=== PATIENT | male | born 1940 | race Caucasian/White ===

== ENCOUNTER 2018-01-27 20:00 | Emergency (ER) | payer OTHER ==
[~2018-01-27] VITALS: Ht 175.3 cm; Wt 94.9 kg
[~2018-01-27 20:00] MED LIST: ADVAIR 250/501 DISK IH; AMLODIPINE BESY10 MG PO; AMLODIPINE BESYL5 MG PO; Advair HFA 115/21 IH; Apresoline PO; CELEXA10 MG PO; CIPRO500 MG PO; COUMADIN4 MG PO; Colace PO; Coumadin,Jantoven PO; DULCOLAX10 MG PR; DURAGESIC25 MCG TD; DuoNeb IH; ENDOCET 5-3251 EACH PO; FENTANYL1 EAC5 TD; FERATAB300 MG PO; FLAGYL500 MG PO; FLEET ENEMA EX230 ML PR; Feosol PO; GAS RELIEF80 M1 PO; HEPARIN SO5000 UNITS SC; HUMULIN R100 UNITS/ SC; HYDROCODON-ACE1 EAC7 PO; LANTUS 10100 UNITS/ SC; LANTUS 3 M100 UNITS1 SC; LEVOFLOXACIN750 MG PO; LIQUACEL PO; LISINOPRIL20 MG PO; LISINOPRIL40 MG PO; METOPROLOL SUC100 MG PO; METOPROLOL SUCC50 MG PO; METOPROLOL TART25 MG PO; METOPROLOL TART50 MG PO; MOTRIN400 MG PO; MULTIVITAMIN1 EAC2 PO; Miralax, Glycolax PO; NIFEDIPINE ER30 MG PO; NOVOLOG 10100 UNITS/ SC; NOVOLOG PE100 UNITS/ SC; OMEPRAZOLE20 M2 PO; OXYCODONE HCL5 M1; OXYCODONE HCL5 M1 PO; OXYCODONE HCL5 MG PO; PANTOPRAZOLE SO40 MG PO; PHILLIPS'400 MG/5 M PO; PRILOSEC20 MG PO; PROMETHAZINE HC25 M1 PO; Percocet 5/325,Endoc PO; Procardia XL,Adalat PO; SIMVASTATIN20 MG PO; SIMVASTATIN40 MG PO; TYLENOL REGULA325 MG PO; VIT E PO; VITAMIN C250 MG PO; Vasotec IV; [UNRECOGNIZED DRUG - OTHER] PO
[2018-01-27 20:36] LABS: HEMATOCRIT 35.3 % (38.0-50.0); HEMOGLOBIN 12.1 G/DL (12.5-16.6); MCH 30.3 PG (29.0-34.0); MCHC 34.3 G/DL (30.0-36.0); MCV 88.5 FL (86-99); PLATELET COUNT 180 K/uL (156-360); RBC DIS.WIDTH-CV 13.2 % (11.8-14.6); RBC DIS.WIDTH-SD 42.5 % (39-53); RED BLOOD COUNT 3.99 M/uL (4.00-5.50); WHITE BLOOD COUNT 7.8 K/uL (4.1-10.2)
[2018-01-27 20:45] LABS: CHLORIDE 110 mEq/L (99-109); POTASSIUM 4.9 mEq/L (3.7-5.4); SODIUM 137 mEq/L (136-147)
[2018-01-27 20:47] LABS: GLUCOSE 305 mg/dL (70-99)
[2018-01-27 20:51] LABS: CREATININE 2.5 mg/dL (0.6-1.3); GFR ESTIMATE (CALCULATED) 27 mL/min/ (58.99-99999)
[2018-01-27 20:52] LABS: UREA NITROGEN (BUN) 49 mg/dL (9-23)
[2018-01-27 20:57] LABS: TROP-I INTERPRETATION NEGATIVE; TROPONIN-I < 0.01 ng/mL (0.0-0.30)
[2018-01-28 01:42] VITALS: BP 202/94
== END 2018-01-28 02:00 | disposition home or self-care (01) ==
LOC: EME 20:00
DX: R42 Dizziness and giddiness (principal); I10 Essential (primary) hypertension; E11.9 Type 2 diabetes mellitus without complications; J44.9 Chronic obstructive pulmonary disease, unspecified; F41.9 Anxiety disorder, unspecified; F32.9 Major depressive disorder, single episode, unspecified; Z79.4 Long term (current) use of insulin; Z87.891 Personal history of nicotine dependence; Z85.828 Personal history of other malignant neoplasm of skin; Z85.038 Personal history of other malignant neoplasm of large intestine; Z93.2 Ileostomy status
CPT/HCPCS: 70450; 71046; 80048; 81003; 84484; 85027; 93005; 99281; 99285; J7030